=== PATIENT | female | born 1940 | race American Indian/Alaskan Native ===

== ENCOUNTER 2018-06-26 13:40 | Emergency (ER) | payer MEDICARE, OTHER ==
--- NOTE | 2018-06-26 13:46 | Emergency Department Report ---
Blank Doc - Documentation Documentation: This is a 78-year-old female that presents with GI bleed. Patient is sent by PCP for further evaluation because they took blood and told her that she has "blood in stomach". Patient denies any abdominal pain or blood in stool. Denies any complaints. This initial assessment diagnostic orders/clinical plan/treatment(s) is/are subject to change based on patient's health status, clinical progression and re- assessment by fellow clinical providers in the ED. Further treatment and workup at subsequent clinical providers discretion. Patient/guardians urged not to elope from ED s their condition may be serious if not clinically assessed and managed. Initial orders include: 1-Patient sent to MAIN ED for further evaluation and treatment 2- Labs 3- UA
[2018-06-26 14:21] LABS: Basophils # (Auto) 0.1 K/mm3 (0.0-0.1); Eosinophils # (Auto) 0.2 K/mm3 (0.0-0.4); Eosinophils % (Auto) 3.5 % (0.0-4.3); Lymphocytes # (Auto) 1.9 K/mm3 (1.2-5.4); Lymphocytes % (Auto) 29.8 % (13.4-35.0); Mean Corpuscular HGB Conc 29 % (30-34); Mean Corpuscular Volume 72 fl (79-97); Monocytes # (Auto) 0.4 K/mm3 (0.0-0.8); Monocytes % (Auto) 6.2 % (0.0-7.3); Platelet Count 299 K/mm3 (140-440); Red Blood Count 4.34 M/mm3 (3.65-5.03)
[2018-06-26 14:28] LABS: Hematocrit 31.1 % (30.3-42.9); Hemoglobin 9.1 gm/dl (10.1-14.3)
[2018-06-26 14:34] LABS: INR 0.95 (0.87-1.13)
[2018-06-26 14:35] LABS: Alanine Aminotransferase 8 units/L (7-56); Albumin 4.3 g/dL (3.9-5); BUN/Creatinine Ratio 16; Blood Urea Nitrogen 13 mg/dL (7-17); Calcium 9.5 mg/dL (8.4-10.2); Hemolysis Index 2; Partial Thromboplastin Time 21.2 Sec. (24.2-36.6)
--- NOTE | 2018-06-26 18:03 | Emergency Department Report ---
ED GI Bleed HPI - General Chief complaint: GI Bleed Stated complaint: BLOOD IN STOMACH Time Seen by Provider: 06/26/18 13:47 Source: patient Mode of arrival: Ambulatory Limitations: No Limitations - History of Present Illness Initial comments: 78-year-old female advised to come to the ER by her PCP, Dr. Thomas. She states she had blood work done last week that showed that her hemoglobin was low. Patient states she was questioned by her PCP as to whether she had blood in her stool, or any other episodes of bleeding, patient denied. Patient states she has dark stools, however states that she is taking iron pills at the moment. The patient denies abdominal pain. Patient states she was instructed by her PCP to get in touch with her chute builder, Tye Morales, however she states she was unable to make an appointment so her PCP told her to come to the ER. Radiation: none Quality: painless Improves with: none Worsens with: none Associated Symptoms: denies other symptoms - Related Data Home Medications Medication Instructions Recorded Confirmed Last Taken Fluticasone [Flonase] 1 spray NS QDAY 04/25/16 04/25/16 Unknown Loratadine [Claritin] 10 mg PO DAILY 04/25/16 04/25/16 Unknown Losartan/Hydrochlorothiazide 1 tab PO DAILY 04/25/16 04/25/16 Unknown [Losartan-Hctz 50-12.5 mg Tab] Omeprazole 40 mg PO DAILY 04/25/16 04/25/16 Unknown amLODIPine [Norvasc] 5 mg PO DAILY 04/25/16 04/25/16 Unknown Previous Rx's Medication Instructions Recorded Last Taken Type Ferrous Sulfate [Feosol 325 MG tab] 325 mg PO BID #60 tablet 04/28/16 Unknown Rx Allergies Allergy/AdvReac Type Severity Reaction Status Date / Time No Known Allergies Allergy Verified 02/10/15 03:12 ED Review of Systems ROS: Stated complaint: BLOOD IN STOMACH Other details as noted in HPI Comment: All other systems reviewed and negative Gastrointestinal: denies: abdominal pain, nausea, vomiting, diarrhea, hematemesis, melena, hematochezia ED Past Medical Hx - Past Medical History Hx Hypertension: Yes Hx Sickle Cell Disease: No - Surgical History Past Surgical History?: Yes Additional Surgical History: hysterectomy - Social History Smoking Status: Never Smoker Substance Use Type: None - Medications Home Medications: Home Medications Medication Instructions Recorded Confirmed Last Taken Type Fluticasone [Flonase] 1 spray NS QDAY 04/25/16 04/25/16 Unknown History Loratadine [Claritin] 10 mg PO DAILY 04/25/16 04/25/16 Unknown History Losartan/Hydrochlorothiazide 1 tab PO DAILY 04/25/16 04/25/16 Unknown History [Losartan-Hctz 50-12.5 mg Tab] Omeprazole 40 mg PO DAILY 04/25/16 04/25/16 Unknown History amLODIPine [Norvasc] 5 mg PO DAILY 04/25/16 04/25/16 Unknown History Ferrous Sulfate [Feosol 325 MG tab] 325 mg PO BID #60 tablet 04/28/16 Unknown Rx ED Physical Exam - General Limitations: No Limitations General appearance: alert, in no apparent distress - Head Head exam: Present: atraumatic, normocephalic - Eye Eye exam: Present: normal appearance - ENT ENT exam: Present: mucous membranes moist - Neck Neck exam: Present: normal inspection - Respiratory Respiratory exam: Present: normal lung sounds bilaterally. Absent: respiratory distress - Cardiovascular Cardiovascular Exam: Present: regular rate, normal rhythm - GI/Abdominal GI/Abdominal exam: Present: soft, distended. Absent: tenderness - Rectal Rectal exam: Present: heme (+) stool, other (dark brown stool) ED Course Vital Signs 06/26/18 06/26/18 06/26/18 13:48 18:11 18:23 Temperature 97.8 F 98.5 F Pulse Rate 73 75 Respiratory 16 18 16 Rate Blood Pressure 196/73 Blood Pressure 171/69 [Left] O2 Sat by Pulse 97 96 Oximetry - Consultations Consultation #1: 06/26/18 18:13 Spoke w/ Dr Schroeder w/ [facility]. States she will advise office to call pt tomorrow to set up an appt for outpt colonoscopy since pt is not actively bleedi ED Medical Decision Making - Lab Data Result diagrams: 06/26/18 13:55 06/26/18 13:55 - Medical Decision Making 78-year-old female with history of anemia, currently on iron pills, presents to the ED for possible worsening anemia. Patient states she was seen by her PCP, question of any blood loss, GI or otherwise, and instructed by a PCP to make an appointment with her GI physician. Patient was unable to do so also presented to the ED. Hemoglobin today is 9.1, rectal exam reveals dark brown stool and is minimally guaiac positive. Spoke with Dr. schroeder, accounting policy consultant for [facility]. State patient did not require admission as she is not having any active bleeding at this time and does not require a blood transfusion due to her hemoglobin of 9. States she will have the office give patient a call tomorrow to schedule an outpatient colonoscopy. Patient given return precautions, including lupe blood in stool, dizziness, syncope or shortness of breath. Will discharge at this time. - Differential Diagnosis anemia, GI bleed Critical care attestation.: If time is entered above; I have spent that time in minutes in the direct care of this critically ill patient, excluding procedure time. ED Disposition Clinical Impression: GI bleed Disposition: DC-01 TO HOME OR SELFCARE Is pt being admited?: No Condition: Stable Instructions: Gastrointestinal Bleeding (ED), Rectal Bleeding (ED) Referrals: [facility] [Provider Group] - 3-5 Days Forms: Accompanied Note Time of Disposition: 18:14
[2018-06-26 18:25] VITALS: BP 171/69
[2018-06-26 18:34] LABS: Bilirubin,Urine NEG (Negative); Blood,Urine NEG (Negative); Color,Urine Straw (Yellow); Protein,Urine <15 mg/dL mg/dL (Negative); Urobilinogen,Urine < 2.0 mg/dL (<2.0)
== END 2018-06-26 18:27 | disposition home or self-care (01) ==
LOC: ED 13:40
DX: K92.2 Gastrointestinal hemorrhage, unspecified (principal); I10 Essential (primary) hypertension; Z86.2 Personal history of diseases of the blood and blood-forming organs and certain disorders involving the immune mechanism; Z90.710 Acquired absence of both cervix and uterus
CPT/HCPCS: 36415; 80053; 81001; 85025; 85610; 85730; 86850; 86900; 86901; 99284